=== PATIENT | male | born 1970 | race Caucasian/White ===

== ENCOUNTER → 2018-01-29 07:42 | Outpatient (CLI) | payer OTHER, SELFPAY ==
[2018-01-29 08:54] LABS: Creatinine Urine Random 131.4 mg/dL
[2018-01-29 08:59] LABS: Microalbumin Urine Random 0.8 mg/dL (0-1.6)
[2018-01-29 09:05] LABS: Blood Urea Nitrogen 18 mg/dL (9-20); Calcium 9.9 mg/dL (8.4-10.2); Carbon Dioxide 26 mmol/L (22-32); Chloride 102 mmol/L (98-107); Cholesterol 257 mg/dL (140-199); Estimated Glomerular Filt Rate > 60.0 mL/min (>60); Glucose 106 mg/dL (70-100); HDL Cholesterol 48 mg/dL (40-60); HEMOLYSIS < 15 (0-50); LDL Cholesterol Calculated 174 mg/dL (<100); Sodium 144 mmol/L (137-145); Triglycerides 174 mg/dL (35-150)
== END ==
PROVIDERS: Visit Provider Family Medicine
DX: R03.0 Elevated blood-pressure reading, without diagnosis of hypertension (principal)
CPT/HCPCS: 36415; 80048; 80061; 82043; 82570

== ENCOUNTER → 2019-02-05 08:35 | Outpatient (CLI) | payer OTHER, SELFPAY ==
--- NOTE | 2019-02-05 08:38 | DI.RAD.S_ITS ---
PROCEDURE: XR KNEE RT 3V INDICATIONS: Pain and pop with twisting, r/o fx, hx of bipapatite patella TECHNIQUE: 3 views of the knee were acquired. COMPARISON: None. FINDINGS: Bones: No fractures or dislocations. No suspicious bony lesions. Soft tissues: No joint effusion. No suspicious soft tissue calcifications. At the lateral border of the patella there are what appear to be accessory ossicles or clustered near the far lateral border of the lateral compartment. IMPRESSION: Accessory ossicles or possible old avulsion fragments with remodeling noted at the medial border of the patella, along the expected insertion of the medial patellar retinaculum. No intra-articular loose body or joint effusion is seen. Dictated by: Davy Jacobsen M.D. on 02/05/2019 at 8:59 Approved by: Davy Jacobsen M.D. on 02/05/2019 at 9:04
== END ==
PROVIDERS: PCP Family Medicine; Visit Provider Nurse Practitioner
DX: M25.561 Pain in right knee (principal)
CPT/HCPCS: 73562

== ENCOUNTER → 2023-07-11 11:41 | Outpatient (CLI) | payer OTHER, SELFPAY ==
[2023-07-11 13:22] LABS: Add Manual Diff / Slide Review NO; Basophils Absolute Auto 0 /uL (0-100); Basophils Percent Auto 0.6 % (0-2); Eosinophils Absolute Auto 600 /uL (0-450); Eosinophils Percent Auto 8.7 % (2-4); Hemoglobin 13.8 g/dL (13.5-17.5); Lymphocytes Absolute Auto 1600 /uL (1100-4500); Lymphocytes Percent Auto 22.2 % (25-40); Mean Corpuscular HGB Conc 33.7 % (30-36); Mean Corpuscular Hemoglobin 30.1 PG (26-34); Mean Corpuscular Volume 89.3 fL (80-100); Monocytes Absolute Auto 400 /uL (0-900); Neutrophils Absolute Auto 4500 /uL (1500-7000); Neutrophils Percent Auto 63.5 % (50-75); Platelet Count 254 X10^3/uL (150-400); Red Cell Distribution Width 13.3 % (11.6-14.8); White Blood Cell Count 7.2 X10^3/uL (4.5-11.0)
== END ==
PROVIDERS: PCP Family Medicine; Referring Provider Urology; Visit Provider Urology
DX: N28.89 Other specified disorders of kidney and ureter (principal)
CPT/HCPCS: 36415; 85025

== ENCOUNTER → 2023-07-23 12:12 | Outpatient (CLI) | payer OTHER, SELFPAY ==
[2023-07-23 14:02] LABS: BUN Creatinine Ratio 15.5 (6-22); Blood Urea Nitrogen 17 mg/dL (9-20); Calcium 9.8 mg/dL (8.4-10.2); Carbon Dioxide 26 mmol/L (22-32); Chloride 102 mmol/L (98-107); Estimated Glomerular Filt Rate > 60 mL/min (>60); Glucose 102 mg/dL (70-100); HEMOLYSIS < 15 (0-50); Potassium 4.5 mmol/L (3.4-5.1); Sodium 137 mmol/L (137-145)
== END ==
LOC: LAB 12:14
PROVIDERS: PCP Family Medicine; Referring Provider Urology; Visit Provider Urology
DX: N28.89 Other specified disorders of kidney and ureter (principal)
CPT/HCPCS: 36415; 80048

== ENCOUNTER → 2023-10-22 15:26 | Outpatient (CLI) | payer OTHER, SELFPAY ==
--- NOTE | 2023-10-22 | DI.NM.S_ITS ---
PROCEDURE: NM EXERCISE TREADMILL NON NUC COMPARISON: None. INDICATIONS: coronary artery disease FINDINGS: Patient exercised per the standard [facility] protocol. Total exercise time was 10 minutes and 0 seconds. Test was terminated secondary to fatigue. Maximal heart rate obtained is 172 bpm which is 103% of max impacted heart rate. Maximum blood pressure was 210/[place] [address]. STEVE 0%. Horizontal ST depressions noted at peak stress in the anterior precordial leads. This resolved in early recovery. Chest pains voiced at peak stress that also resolved in early recovery. No arrhythmias noted. Normal heart rate with hypertensive blood pressure response to exercise. IMPRESSION: 1. Positive exercise treadmill stress test in terms of ischemia. 2. Average exercise tolerance. 3. Hypertensive blood pressure response to exercise. Dictated by: Jay Lewis M.D. on 10/22/2023 at 16:39 Approved by: Jay Lewis M.D. on 10/22/2023 at 16:41
== END ==
PROVIDERS: PCP Family Medicine; Referring Provider Internal Medicine; Visit Provider Internal Medicine
DX: I25.119 Atherosclerotic heart disease of native coronary artery with unspecified angina pectoris (principal); I25.9 Chronic ischemic heart disease, unspecified; I10 Essential (primary) hypertension
CPT/HCPCS: 93017

== ENCOUNTER → 2023-10-23 14:53 | Outpatient (CLI) | payer OTHER, SELFPAY ==
--- NOTE | 2023-10-23 14:54 | DI.ECHO.S_ITS ---
[facility] : : [address] : : [place] : : [id number] : : Phone: [phone] Echocardiogram Report + + :Name: JOSÉ ANTONIO YANEZ Study Date: 10/23/2023 Height: 73 in : :[facility] ReadingLocation: Weight: 195 lb : :Account #: [facility] Gender: Male BSA: 2.1 m2 : :: 1970 Age: 53 yrs BP: 154/108 mmHg: :Reason For Study: CAD : :Ordering Physician: MIRELLA LEWIS Performed By: Jevon Srinivasan : :Referring: MIRELLA LEWIS : + + Interpretation Summary 1. The left ventricular contractility is normal. Estimated ejection fraction is greater than 55% with no segmental wall motion abnormalities. Mild concentric LVH. Grade 1 diastolic dysfunction. 2. The right ventricular contractility is normal. 3. There is mild biatrial enlargement. All other cardiac chambers are of normal size. 4. No significant valvular abnormalities. 5. No obvious intracardiac shunts. 6. No obvious intracardiac masses nor thrombi. 7. No hemodynamically significant pericardial effusion. 8. Low right-sided filling pressures. Conclusion: Normal biventricular systolic function with changes suggestive of hypertensive heart disease. Procedure: A two-dimensional transthoracic echocardiogram with color flow and Doppler was performed. The study quality was technically adequate. There is no prior echocardiogram noted for this patient. The patient was in sinus rhythm with heart rates between 69-94 bpm during the exam. Left Ventricle: The left ventricle is normal in size. Left ventricular wall thickness is mildly increased. The ejection fraction is estimated to be 55- 60%. Right Ventricle: The right ventricle is normal size. The right ventricular systolic function is normal. Atria: The left atrium is mildly dilated. The right atrium is mildly dilated. The interatrial septum grossly appears intact with no obvious evidence for an atrial septal defect. The atrial septum is aneurysmal. Mitral Valve: The mitral valve is normal. There is no mitral valve stenosis. There is no mitral regurgitation noted. Aortic Valve: The aortic valve is trileaflet. There is no aortic valve stenosis. No aortic regurgitation is present. Tricuspid Valve: The tricuspid valve is normal. There is no tricuspid stenosis. No tricuspid regurgitation. Pulmonic Valve: The pulmonic valve is not well visualized. There is no pulmonic valvular stenosis. There is a trace or physiologic amount of pulmonic regurgitation. Great Vessels: The aortic root is normal size. The dimensions of the ascending aorta are normal. The IVC is of normal diameter and collapses greater than 50% with a sniff. This suggests a low right atrial pressure of 3 mm Hg. Pericardium/ Pleura There is no pericardial effusion. There is no pleural effusion. MMode/2D Measurements & Calculations LVIDd: 4.6 cm LVOT diam: 2.4 cm LVIDs: 2.6 cm Ao root diam: 3.5 cm FS: 41.8 % asc Aorta Diam: 3.3 cm IVSd: 1.2 cm Ao Arch Diam (Prox Trans): 2.0 cm LVPWd: 1.1 cm LV groves. diameter/BSA (cm/m^2): 2.1 LV sys. diameter/BSA (cm/m^2): 1.2 LA A2 area: 23.3 cm2 RA long axis: 5.0 cm LA A4 area: 23.2 cm2 RA area: 18.2 cm2 LA length (vol): 5.2 cm RA vol: 57.1 ml LA vol: 87.6 ml RA : 26.8 ml/m2 LA vol index: 41.1 ml/m2 IVC diam: 2.1 cm RVD1 (basal): 3.8 cm RVD2 (mid): 3.9 cm TAPSE: 2.7 cm Doppler Measurements & Calculations Ao V2 max: 152.1 cm/sec LVOT Max Rusty: 144.4 cm/sec Ao V2 mean: 101.2 cm/sec LV V1 max P.3 mmHg Ao max P.3 mmHg LV V1 VTI: 27.6 cm Ao mean P.8 mmHg PANCHITO(I,D): 4.3 cm2 Ao V2 VTI: 30.0 cm PANCHITO(V,D): 4.4 cm2 sev ratio: 0.92 PANCHITO indexed to BSA (cm^2/m^2): 2.0 MV E max rusty: 69.2 cm/sec PA V2 max: 163.7 cm/sec MV A max rusty: 92.1 cm/sec PA V2 mean: 110.6 cm/sec MV E/A: 0.75 PA mean P.6 mmHg Med Peak E' Rusty: 8.5 cm/sec PA pr(Accel): 24.2 mmHg E/E' med: 8.2 Lat Peak E' Rusty: 8.8 cm/sec E/E' lat: 7.8 E/e' average: 8.0 MV dec time: 0.15 sec SV(LVOT): 127.8 ml Reading Physician:
== END ==
LOC: ECHO 14:54
PROVIDERS: PCP Family Medicine; Referring Provider Internal Medicine; Visit Provider Internal Medicine
DX: I25.119 Atherosclerotic heart disease of native coronary artery with unspecified angina pectoris (principal); I51.7 Cardiomegaly
CPT/HCPCS: 93306

== ENCOUNTER → 2023-11-19 09:59 | Outpatient (CLI) | payer OTHER, SELFPAY ==
[2023-11-19 12:02] LABS: Blood Urea Nitrogen 30 mg/dL (9-20); Calcium 10.2 mg/dL (8.4-10.2); Carbon Dioxide 26 mmol/L (22-32); Chloride 100 mmol/L (98-107); Cholesterol 243 mg/dL (140-199); Estimated Glomerular Filt Rate 55 mL/min (>60); Glucose 105 mg/dL (70-100); HDL Cholesterol 77 mg/dL (40-60); HEMOLYSIS < 15 (0-50); LDL Cholesterol Calculated 150 mg/dL (<100); Potassium 4.9 mmol/L (3.4-5.1); Sodium 135 mmol/L (137-145); Triglycerides 81 mg/dL (35-150)
== END ==
LOC: LAB 10:00
PROVIDERS: PCP Family Medicine; Referring Provider Internal Medicine; Visit Provider Internal Medicine
DX: I25.119 Atherosclerotic heart disease of native coronary artery with unspecified angina pectoris (principal)
CPT/HCPCS: 36415; 80048; 80061

== ENCOUNTER → 2024-01-28 10:54 | Outpatient (CLI) | payer OTHER, SELFPAY ==
[2024-01-28 12:58] LABS: Alanine Aminotransferase 25 IU/L (<50); Albumin 4.9 g/dL (3.5-5.0); Albumin Globulin Ratio 1.8 (1.0-2.8); Alkaline Phosphatase 52 U/L (38-126); Aspartate Aminotransferase 29 IU/L (17-59); BUN Creatinine Ratio 17.4 (6-22); Bilirubin Total 0.6 mg/dL (0.2-1.3); Blood Urea Nitrogen 28 mg/dL (9-20); Calcium 10.5 mg/dL (8.4-10.2); Carbon Dioxide 25 mmol/L (22-32); Chloride 104 mmol/L (98-107); Estimated Glomerular Filt Rate 51 mL/min (>60); Globulin 2.7 g/dL (1.7-4.1); Glucose 106 mg/dL (70-100); HEMOLYSIS < 15 (0-50); Sodium 139 mmol/L (137-145); Total Protein 7.6 g/dL (6.3-8.2)
[2024-01-28 13:10] LABS: Potassium 5.5 mmol/L (3.4-5.1)
== END ==
PROVIDERS: PCP Family Medicine; Referring Provider Urology; Visit Provider Urology
DX: C64.2 Malignant neoplasm of left kidney, except renal pelvis (principal)
CPT/HCPCS: 36415; 80053

== ENCOUNTER → 2024-05-19 09:18 | Outpatient (CLI) | payer OTHER, SELFPAY ==
[2024-05-19 10:15] LABS: Alanine Aminotransferase 31 IU/L (<50); Albumin 4.8 g/dL (3.5-5.0); Alkaline Phosphatase 50 U/L (38-126); Aspartate Aminotransferase 34 IU/L (17-59); Bilirubin Total 0.9 mg/dL (0.2-1.3); Blood Urea Nitrogen 26 mg/dL (9-20); Calcium 9.8 mg/dL (8.4-10.2); Carbon Dioxide 25 mmol/L (22-32); Chloride 104 mmol/L (98-107); Estimated Glomerular Filt Rate 50 mL/min (>60); Globulin 2.4 g/dL (1.7-4.1); Glucose 117 mg/dL (70-100); HEMOLYSIS < 15 (0-50); Potassium 4.8 mmol/L (3.4-5.1); Sodium 139 mmol/L (137-145); Total Protein 7.2 g/dL (6.3-8.2)
== END ==
PROVIDERS: PCP Family Medicine; Referring Provider Urology; Visit Provider Urology
DX: C64.2 Malignant neoplasm of left kidney, except renal pelvis (principal)
CPT/HCPCS: 36415; 80053

== ENCOUNTER → 2024-05-21 10:03 | Outpatient (CLI) | payer OTHER, SELFPAY ==
--- NOTE | 2024-05-21 | DI.RAD.S_ITS ---
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 COMPARISON: None. FINDINGS: Surgical changes and devices: None. Lungs and pleura: Lungs are clear. No pleural effusions or pneumothorax. Mediastinum: Mediastinal contours are normal. Heart size is normal. Bones and chest wall: No suspicious bony abnormalities. Soft tissues appear unremarkable. IMPRESSION: No acute cardiopulmonary abnormality is seen. Dictated by: Yevgeniy Lundberg M.D. on 05/21/2024 at 21:22 Approved by: Yevgeniy Lundberg M.D. on 05/21/2024 at 21:24
--- NOTE | 2024-05-21 10:05 | DI.CT.S_ITS ---
PROCEDURE: CT ABDOMEN PELVIS W CON INDICATIONS: clear cell carcinoma of kidney TECHNIQUE: After the administration of intravenous contrast, axial sections acquired from the lung bases to the pubic symphysis. Coronal and sagittal reformats were performed. For radiation dose reduction, the following was used: automated exposure control, adjustment of mA and/or kV according to patient size. COMPARISON: [facility], CT, CT ABDOMEN RENAL PROTOCOL, 06/12/2023, 8:36. FINDINGS: Image quality: Diagnostic. Lower Chest: No significant findings. ABDOMEN: Liver: No solid mass. Gallbladder: No radiopaque gallstones or wall thickening. Biliary ducts: No biliary dilation. Pancreas: No ductal dilation. Spleen: Size is within normal limits. Adrenal Glands: No adrenal nodules. The left adrenal may have been resected with left nephrectomy. Right Kidney and right: No hydronephrosis. No solid mass. No complex renal cystic lesion which requires follow up. Expected postsurgical changes of left nephrectomy. Stomach and Bowel: Normal colonic caliber, without significant wall thickening. Peritoneum: No abnormal intraperitoneal fluid. No free air. Ventral Wall: No significant ventral hernia. Abdominal Nodes: No retroperitoneal or mesenteric adenopathy by size criteria. Vessels: Aorta and inferior vena cava are normal in size. PELVIS: Pelvic Organs: Unremarkable. Bladder: No bladder wall thickening, accounting for underdistention. Pelvic Nodes: No enlarged lymph nodes. Miscellaneous: No inguinal hernias are seen. Bones: No aggressive osseous abnormality. L2 anterior wedge compression fracture/Schmorl's node stable. Prominent degenerative change L5-S1 with slight retrolisthesis likely reflects ligamentous laxity from facet osteoarthritis and L5-S1 disc height reduction. IMPRESSION: 1. Expected postsurgical changes after left nephrectomy subsequent to the CT scanning from May 2023. No evidence of regional adenopathy or distant metastatic disease found. 2. Incidental note made of upper 3rd and middle 3rd right renal collecting system punctate nonobstructive calculi. 3. Mild anterior wedging, upper Schmorl's node L2. Retrolisthesis L5 on S1 with degenerative disc disease, chronic. Dictated by: Davy Jacobsen M.D. on 05/21/2024 at 15:09 Approved by: Davy Jacobsen M.D. on 05/21/2024 at 15:14
== END ==
PROVIDERS: PCP Family Medicine; Referring Provider Urology; Visit Provider Urology
DX: C64.2 Malignant neoplasm of left kidney, except renal pelvis (principal); N20.0 Calculus of kidney; S32.020A Wedge compression fracture of second lumbar vertebra, initial encounter for closed fracture; M43.17 Spondylolisthesis, lumbosacral region; M51.379 Other intervertebral disc degeneration, lumbosacral region without mention of lumbar back pain or lower extremity pain; M51.46 Schmorl's nodes, lumbar region; Z90.5 Acquired absence of kidney
CPT/HCPCS: 71046; 74177; Q9967

== ENCOUNTER → 2024-06-30 15:58 | Outpatient (CLI) | payer OTHER, SELFPAY ==
[2024-06-30 17:21] LABS: Cholesterol 191 mg/dL (140-199); HDL Cholesterol 53 mg/dL (40-60); LDL Cholesterol Calculated 108 mg/dL (<100); Triglycerides 150 mg/dL (35-150)
== END ==
LOC: LAB 16:00
PROVIDERS: PCP Family Medicine; Referring Provider Internal Medicine Cardiovascular Disease; Visit Provider Internal Medicine Cardiovascular Disease
DX: I25.10 Atherosclerotic heart disease of native coronary artery without angina pectoris (principal); I25.83 Coronary atherosclerosis due to lipid rich plaque
CPT/HCPCS: 36415; 80061

== ENCOUNTER → 2024-07-30 09:50 | Outpatient (CLI) | payer OTHER, SELFPAY ==
[2024-07-30 10:43] LABS: Add Manual Diff / Slide Review NO; Basophils Absolute Auto 0 /uL (0-100); Basophils Percent Auto 0.8 % (0-2); Eosinophils Absolute Auto 400 /uL (0-450); Eosinophils Percent Auto 7.4 % (2-4); Hematocrit 39.5 % (41-53); Hemoglobin 13.5 g/dL (13.5-17.5); Lymphocytes Absolute Auto 1300 /uL (1100-4500); Lymphocytes Percent Auto 24.2 % (25-40); Mean Corpuscular HGB Conc 34.2 % (30-36); Mean Corpuscular Volume 90.6 fL (80-100); Monocytes Absolute Auto 400 /uL (0-900); Monocytes Percent Auto 6.5 % (3-14); Neutrophils Absolute Auto 3300 /uL (1500-7000); Neutrophils Percent Auto 61.1 % (50-75); Platelet Count 236 X10^3/uL (150-400); Red Blood Cell Count 4.36 X10^6/uL (4.5-5.9); Red Cell Distribution Width 13.4 % (11.6-14.8); White Blood Cell Count 5.5 X10^3/uL (4.5-11.0)
== END ==
PROVIDERS: PCP Family Medicine; Referring Provider Internal Medicine Cardiovascular Disease; Visit Provider Internal Medicine Cardiovascular Disease
DX: I25.10 Atherosclerotic heart disease of native coronary artery without angina pectoris (principal); I25.83 Coronary atherosclerosis due to lipid rich plaque; R06.02 Shortness of breath
CPT/HCPCS: 36415; 85025